=== PATIENT | female | born 1965 | race Caucasian/White ===

== ENCOUNTER 2017-04-19 10:27 | Emergency (ER) | payer OTHER ==
[2017-04-19 11:16] VITALS: BP 136/84; PULSE 80; TEMP 97.9; BMI 28.1
[2017-04-19] MEDS ORDERED: oxyCODONE HCL 5 MG TABLET PO ONE (11:31)
[2017-04-19] MEDS ORDERED: oxyCODONE HCL 5 MG TABLET ONE (11:38)
--- NOTE | 2017-04-19 11:42 | PDOC ---
History of Present Illness - General Chief Complaint: Pain Stated Complaint: WITHDAWAL Time Seen by Provider: 04/19/17 10:53 - History of Present Illness Initial Comments: 04/19/17 12:00 "52 year old female, with significant PMH of anxiety, ADHD, chronic shoulder pain (on percocet), and heroin use, who presents to the emergency room because she ran out of Xanax and adderall last week and ran out of percocet a couple of days ago. Pt now complains of sweats, nausea, bodyaches, and diarrhea. She states that she was previously on methadone, but does not remember when. The patient explains that she used to see Dr. Gaetano Thornton, who has recently left the office. She is in the process of finding a new PCP, but the earliest appointment is on 05/06/17 and states that she cannot wait that long. Denies fever, chills. Denies recent travel. Denies recent illness. Denies chest pain, SOB. Denies recent injuries, denies any pain. Allergies: NKA Social hx: The patient states that she is living in her car. Heroin use. PCP: Dr. Gaetano Thornton " Past History - Past Medical History Allergies/Adverse Reactions: Allergies Allergy/AdvReac Type Severity Reaction Status Date / Time No Known Allergies Allergy Verified 04/19/17 10:58 Home Medications: Ambulatory Orders Alprazolam [Xanax Xr] 1 mg PO TID 04/19/17 Dextroamphetamine/Amphetamine [Adderall Xr 30 mg Capsule] 30 mg PO TID 04/19/17 Oxycodone HCl [Roxicodone -] 10 mg PO Q6H 04/19/17 Anemia: No Asthma: No Cancer: No Cardiac Disorders: No CVA: No COPD: No CHF: No Dementia: No Diabetes: No GI Disorders: No Disorders: No HTN: No Hypercholesterolemia: No Liver Disease: No Psychiatric Problems: Yes Seizures: No Thyroid Disease: No - Surgical History Abdominal Surgery: No Appendectomy: No Cardiac Surgery: No Cholecystectomy: No Lung Surgery: No Neurologic Surgery: No Orthopedic Surgery: Yes (left shoulder arthroscopy) - Suicide/Smoking/Psychosocial Hx Smoking History: Current every day smoker Have you smoked in the past 12 months: Yes Number of Cigarettes Smoked Daily: 20 Information on smoking cessation initiated: Yes 'Breaking Loose' booklet given: 04/19/17 Hx Alcohol Use: No Drug/Substance Use Hx: No Substance Use Type: Heroin, Opiates Hx Substance Use Treatment: No Review of Systems - Review of Systems Comments:: 04/19/17 12:01 "GENERAL/CONSTITUTIONAL: No fever or chills. No weakness. HEAD, EYES, EARS, NOSE AND THROAT: No change in vision. No ear pain or discharge. No sore throat. CARDIOVASCULAR: No chest pain or shortness of breath. RESPIRATORY: No cough, wheezing, or hemoptysis. GASTROINTESTINAL: +nausea, diarrhea. No constipation. GENITOURINARY: No dysuria, frequency, or change in urination. MUSCULOSKELETAL: No joint or muscle swelling or pain. No neck or back pain. SKIN: No rash NEUROLOGIC: No headache, vertigo, loss of consciousness, or change in strength/ sensation. ENDOCRINE: No increased thirst. No abnormal weight change. HEMATOLOGIC/LYMPHATIC: No anemia, easy bleeding, or history of blood clots. ALLERGIC/IMMUNOLOGIC: No hives or skin allergy. " *Physical Exam - Vital Signs Last Vital Signs Temp Pulse Resp BP Pulse Ox 97.9 F 80 20 136/84 98 04/19/17 10:35 04/19/17 10:35 04/19/17 10:35 04/19/17 10:35 04/19/17 10:35 - Physical Exam Comments: 04/19/17 12:01 "GENERAL: Awake, alert, and fully oriented, in no acute distress HEAD: No signs of trauma EYES: PERRLA, EOMI, sclera anicteric, conjunctiva clear ENT: Auricles normal inspection, hearing grossly normal, nares patent, oropharynx clear without exudates. Moist mucosa NECK: Nontender, no stepoffs, Normal ROM, supple, no lymphadenopathy, JVD, or masses LUNGS: Breath sounds equal, clear to auscultation bilaterally. No wheezes, and no crackles HEART: Regular rate and rhythm, normal S1 and S2, no murmurs, rubs or gallops ABDOMEN: Soft, nontender, normoactive bowel sounds. No guarding, no rebound. No masses EXTREMITIES: Normal range of motion, no edema. No clubbing or cyanosis. No cords, erythema, or tenderness NEUROLOGICAL: Cranial nerves II through XII intact. 5/5 strength and sensation in all extremities, Normal speech, normal gait SKIN: Warm, Dry, normal turgor, no rashes or lesions noted. " Medical Decision Making - Medical Decision Making 04/19/17 11:35 52 F presenting with nausea, diarrhea, and body aches. Likely withdrawing from opiates. Pt with no s/s of active ETOH/benzo withdrawal. Vitals stable with completely normal physical exam. Offered pt [facility], but pt is not interested in detox at this time. I called Dr. Thornton's office, who informed me that Dr. Thornton has retired. His patients are no longer being seen in their practice, and there are no providers who can corn picker Ms. Pastor as their patient. I discussed with pt option of f/u with [facility], and pt is amenable. F/u appointment made for patient TOMORROW @ 1:30PM. 04/19/17 12:01 Pt ELOPED FROM ER immediately after receiving oxycodone. Per nurse, pt admitted to heroin use over the past few days. Although she witnessed pt putting the oxycodone in her mouth, it is uncertain whether pt actually swallowed the pill. Upon last evaluation, pt was well appearing, normal vitals. Clinically stable. *DC/Admit/Observation/Transfer Diagnosis at time of Disposition: Opiate abuse, continuous - Discharge Dispostion Disposition: ELOPED - Referrals Referrals: Gaetano Thornton MD [Primary Care Provider] - - Patient Instructions - Post Discharge Activity - Attestations Physician Attestion: 04/19/17 12:05 I, Dr. Juarez Trinidad MD, attest that this document has been prepared under my direction and personally reviewed by me in its entirety. I further attest, that it accurately reflects all work, treatment, procedures and medical decision -making performed by me.
[2017-04-19 12:23] LABS: URINE MARIJUANA THC NEGATIVE ng/ml (CUTOFF=50)
== END 2017-04-19 12:54 | disposition home or self-care (01) ==
LOC: JER 10:27
DX: F11.20 Opioid dependence, uncomplicated (principal); F41.9 Anxiety disorder, unspecified; F90.9 Attention-deficit hyperactivity disorder, unspecified type; F17.210 Nicotine dependence, cigarettes, uncomplicated
CPT/HCPCS: 80307; 99282-25

== ENCOUNTER 2017-07-27 18:15 | Emergency (ER) | payer OTHER ==
[2017-07-27 19:15] VITALS: BP 130/80; PULSE 84; TEMP 97.7; BMI 29.7
--- NOTE | 2017-07-27 19:31 | PDOC ---
History of Present Illness - General History Source: Patient Exam Limitations: No Limitations - History of Present Illness Initial Comments: 07/27/17 19:47 The patient is a 52 year old female, with a significant PMH of anxiety, ADHD, chronic shoulder pain (on percocet), and heroin use who presents to the emergency department with right ear pain for the last 3 days. The patient reports ear discharge today with associated, moderate facial pain prompting her to come to the ER. The patient denies fever or any URI symptoms. The patient denies chest pain, shortness of breath, headache and dizziness. Denies fever, chills, nausea, vomit, diarrhea and constipation. Denies dysuria, frequency, urgency and hematuria. Allergies: NKA Past surgical history: Left shoulder arthroscopy Social history: Heroin and opiate use. No reported cigarette or alcohol use. <Dede Bartholomew - Last Filed: 07/27/17 19:52> <Ramiro Carrillo - Last Filed: 07/28/17 06:37> - General Chief Complaint: Ear Problem Stated Complaint: RIGHT EAR PAIN Time Seen by Provider: 07/27/17 19:31 Past History <Dede Bartholomew - Last Filed: 07/27/17 19:52> - Past Medical History Anemia: No Asthma: No Cancer: No Cardiac Disorders: No CVA: No COPD: No CHF: No Dementia: No Diabetes: No GI Disorders: No Disorders: No HTN: No Hypercholesterolemia: No Liver Disease: No Psychiatric Problems: Yes Seizures: No Thyroid Disease: No - Surgical History Abdominal Surgery: No Appendectomy: No Cardiac Surgery: No Cholecystectomy: No Lung Surgery: No Neurologic Surgery: No Orthopedic Surgery: Yes (left shoulder arthroscopy) - Suicide/Smoking/Psychosocial Hx Smoking History: Never smoked Have you smoked in the past 12 months: Yes Number of Cigarettes Smoked Daily: 20 'Breaking Loose' booklet given: 04/19/17 Hx Alcohol Use: No Drug/Substance Use Hx: No Substance Use Type: Heroin, Opiates Hx Substance Use Treatment: No <Ramiro Carrillo - Last Filed: 07/28/17 06:37> - Past Medical History Allergies/Adverse Reactions: Allergies Allergy/AdvReac Type Severity Reaction Status Date / Time No Known Allergies Allergy Verified 07/27/17 18:27 Home Medications: Ambulatory Orders Alprazolam [Xanax Xr] 1 mg PO TID 04/19/17 Dextroamphetamine/Amphetamine [Adderall Xr 30 mg Capsule] 30 mg PO TID 04/19/17 oxyCODONE HCL [Roxicodone -] 10 mg PO Q6H 04/19/17 Amoxicillin - [Amoxicillin 500mg Capsule -] 500 mg PO TID #21 capsule 07/27/17 Naproxen 500 mg PO BID PRN #14 tablet 07/27/17 Review of Systems - Review of Systems Able to Perform ROS?: Yes Comments:: 07/27/17 19:48 ROS: A complete review of 10 out of 10 review of systems is taken and is negative apart from what is previously mentioned below and in the HPI. <Dede Bartholomew - Last Filed: 07/27/17 19:52> *Physical Exam - Vital Signs Last Vital Signs Temp Pulse Resp BP Pulse Ox 97.7 F 84 16 130/80 98 07/27/17 19:13 07/27/17 19:13 07/27/17 19:13 07/27/17 19:13 07/27/17 19:13 - Physical Exam Comments: 07/27/17 19:48 Vitals: Triage vital signs reviewed General Appearance: No acute distress, well nourished, well developed Eyes: Pupils equal reactive round, extraocular movement intact Ears: (+) Otitis externa. (+) Cannot visualize TM. (+) Mild tenderness to palpation when manipulating pinna. Mastoid NT. TM's normal bilaterally Cardiac: Regular rate and rhythm, no murmurs, no rubs, no gallops Lungs: Clear to auscultation bilateral, good air movement bilaterally Extremities: Full range of motion to all extremities, no cyanosis, clubbing, or edema Skin: Warm and dry, no rashes or lesions, no rash, no petechiae Neuro: AOX3; Cranial Nerves 2-12 grossly intact, Strength intact to all extremities, Sensation intact to all extremities, gait normal Psych: Normal mood, normal affect <Dede Bartholomew - Last Filed: 07/27/17 19:52> - Vital Signs Last Vital Signs Temp Pulse Resp BP Pulse Ox 97.7 F 84 16 130/80 98 07/27/17 19:13 07/27/17 19:13 07/27/17 19:13 07/27/17 19:13 07/27/17 19:13 <Ramiro Carrillo - Last Filed: 07/28/17 06:37> Medical Decision Making - Medical Decision Making 07/28/17 06:36 otitis externa cannot r/o OM wick placed, topical abx, systemic abx, analgesia ENT fu <Ramiro Carrillo - Last Filed: 07/28/17 06:37> *DC/Admit/Observation/Transfer - Attestations Scribe Attestion: 07/27/17 19:51 Documentation prepared by Dede Bartholomew, acting as director biomedical engineering for Ramiro Carrillo MD. <Dede Bartholomew - Last Filed: 07/27/17 19:52> <Ramiro Carrillo - Last Filed: 07/28/17 06:37> Diagnosis at time of Disposition: Otitis externa Qualifiers: Otitis externa type: diffuse Chronicity: acute Laterality: right Qualified Code (s): H60.311 - Diffuse otitis externa, right ear - Discharge Dispostion Disposition: HOME Condition at time of disposition: Good - Prescriptions Prescriptions: Amoxicillin - [Amoxicillin 500mg Capsule -] 500 mg PO TID #21 capsule Naproxen 500 mg PO BID PRN #14 tablet PRN Reason: Pain - Referrals Referrals: Jesús Christine MD [Staff Physician] - 3 days - Patient Instructions Printed Discharge Instructions: DI for Otitis Externa
[2017-07-27] MEDS ORDERED: AMOXICILLIN 500 MG CAPSULE (FP) PO ONE (19:32)
[2017-07-27] MEDS ORDERED: KETOROLAC TROMETHAMINE 60 MG/2 ML VIAL IM ONE (19:33)
[2017-07-27] MEDS ORDERED: NEOMYCIN/POLYMYXN/HC OTIC SUSPENSION 10 ML BOTTLE ONE (19:39)
[2017-07-27] MEDS ORDERED: KETOROLAC TROMETHAMINE 60 MG/2 ML VIAL ONE (19:41)
[2017-07-27] MEDS ORDERED: AMOXICILLIN 250 MG CAPSULE ONE (19:42)
== END 2017-07-27 20:52 | disposition home or self-care (01) ==
LOC: FER 18:15
PROC: 3E0233Z Introduction of Anti-inflammatory into Muscle, Percutaneous Approach (ICD-10-PCS; principal; 2017-07-27)
DX: H60.311 Diffuse otitis externa, right ear (principal)
CPT/HCPCS: 99281-25

== ENCOUNTER 2018-05-26 07:15 | Emergency (ER) | payer OTHER ==
[2018-05-26 07:23] VITALS: BP 110/59; TEMP 98.3; BMI 28.1
[2018-05-26] MEDS ORDERED: ALBUTEROL SO4 2.5/IPRATROPIUM 0.5 INH SOL 3 ML VIAL.NEB. NEB ONE ×4 (07:31→08:15)
--- NOTE | 2018-05-26 07:33 | PDOC ---
History of Present Illness - General Chief Complaint: Shortness of Breath Stated Complaint: SOB Time Seen by Provider: 05/26/18 07:20 History Source: Patient Exam Limitations: No Limitations - History of Present Illness Initial Comments: 05/26/18 07:34 53y F hx of asthma, former heroin abuse presnts with sob x 3 days associated with non productive cough. no associated fever/chills, hemoptysis, leg swelling , calf pain, cp, abd pain, n/v, diaphoresis, back pain. pt endorses some young. pt notse she occasionally uses her albuterol but ran out recently. son is sick with uri symptmos. pt endorses alittle tickle in her throat but denies any nasal congestion, body aches. current smoker Past History - Past Medical History Allergies/Adverse Reactions: Allergies Allergy/AdvReac Type Severity Reaction Status Date / Time No Known Allergies Allergy Verified 05/26/18 07:15 Home Medications: Ambulatory Orders Alprazolam [Xanax Xr] 1 mg PO TID 04/19/17 Dextroamphetamine/Amphetamine [Adderall Xr 30 mg Capsule] 30 mg PO TID 04/19/17 oxyCODONE HCL [Roxicodone -] 10 mg PO Q6H 04/19/17 Albuterol Sulfate Inhaler - [Ventolin HFA Inhaler -] 1 - 2 inh PO Q4H PRN #1 inhaler 05/26/18 Albuterol Sulfate Inhaler - [Ventolin Hfa Inhaler -] 1 - 2 inh PO QID 05/26/18 predniSONE [Deltasone -] 40 mg PO DAILY #8 tablet 05/26/18 Anemia: No Asthma: No Cancer: No Cardiac Disorders: No CVA: No COPD: No CHF: No Dementia: No Diabetes: No GI Disorders: No Disorders: No HTN: No Hypercholesterolemia: No Liver Disease: No Psychiatric Problems: Yes Seizures: No Thyroid Disease: No Other medical history: ASTHMA - Surgical History Abdominal Surgery: No Appendectomy: No Cardiac Surgery: No Cholecystectomy: No Lung Surgery: No Neurologic Surgery: No Orthopedic Surgery: Yes (left shoulder arthroscopy) - Suicide/Smoking/Psychosocial Hx Smoking History: Current every day smoker Have you smoked in the past 12 months: Yes Number of Cigarettes Smoked Daily: 5 Information on smoking cessation initiated: Yes 'Breaking Loose' booklet given: 04/19/17 Hx Alcohol Use: No Drug/Substance Use Hx: No Substance Use Type: Heroin, Opiates Hx Substance Use Treatment: No Review of Systems - Review of Systems Able to Perform ROS?: Yes Comments:: 05/26/18 07:35 Constitutional - no reported Fever, Chills, HEENT: no reported vision changes, sore throat Respiratory: +cough, sob, no reported hemoptysis Cardiac: no reported chest pain, palpitations, light headedness, leg swelling Abd/GI: no reported abd pain, nausea, vomiting, blood per rectum, melena, diarrhea : no reported dysuria, frequency, discharge Musculskelatal - no reported back pain, joint swelling skin - no reported bruising, erythema, rash neurological: no reported headache, numbness, focal weakness, tingling, ataxia, hematologic: no reported easy bruising, easy bleeding *Physical Exam - Vital Signs Last Vital Signs Temp Pulse Resp BP Pulse Ox 98.3 F 102 H 20 110/59 L 92 L 05/26/18 07:15 05/26/18 07:15 05/26/18 07:15 05/26/18 07:15 05/26/18 07:15 - Physical Exam Comments: 05/26/18 07:39 GENERAL: The patient is awake, alert, and fully oriented, Nontoxic - in no acute distress. HEAD: Normocephalic, atraumatic. EYES: extraocular movements intact, sclera anicteric, conjunctiva clear. ENT: Normal voice, Moist mucous membranes, posterior pharynx w.o exudates or erythema NECK: Normal range of motion, supple LUNGS: diffuse wheezing bilatearlly, mild respiratory distress, speaking complete sentences HEART: Regular rate and rhythm, normal S1 and S2 without murmur, rub or gallop. ABDOMEN: Soft, nontender, No guarding, no rebound. . No CVA tenderness EXTREMITIES: Normal range of motion, trace edema. NEUROLOGICAL: No facial assymetry, Normal speech, PSYCH: Normal mood, normal affect. SKIN: Warm, Dry, normal turgor, Moderate Sedation - Procedure Monitoring Vital Signs: Procedure Monitoring Vital Signs Temperature 98.3 F 05/26/18 07:15 Pulse Rate 102 H 05/26/18 07:15 Respiratory Rate 20 05/26/18 07:15 Blood Pressure 110/59 L 05/26/18 07:15 O2 Sat by Pulse Oximetry (%) 92 L 05/26/18 07:15 ED Treatment Course - RADIOLOGY Radiology Studies Ordered: Category Date Time Status CHEST PA & LAT [RAD] Stat Radiology 05/26/18 07:31 Ordered Medical Decision Making - Medical Decision Making 05/26/18 07:40 suspect asthma exacerbation secondary to viral syndrome will give 1 neb, if requires more will give prednisone cxr to r/o pna 05/26/18 08:51 pt improved after 2 duonebs no acut respiratory distress sat normal will dc with albuterol inhaler and prednisone cxr w no acute pathology I discussed the physical exam findings, ancillary test results and final diagnoses with the patient. I answered all of the patient's questions. The patient was satisfied with the care received and felt comfortable with the discharge plan and treatment plan. The patient will call their primary care physician within 24 hours to arrange follow-up and will return to the Emergency Department with any new, persistent or worsening symptoms. *DC/Admit/Observation/Transfer Diagnosis at time of Disposition: Asthma exacerbation Qualifiers: Asthma severity: moderate Asthma persistence: unspecified Qualified Code(s): J45.901 - Unspecified asthma with (acute) exacerbation - Discharge Dispostion Disposition: HOME Condition at time of disposition: Improved Decision to Admit order: No - Prescriptions Prescriptions: Albuterol Sulfate Inhaler - [Ventolin HFA Inhaler -] 1 - 2 inh PO Q4H PRN #1 inhaler PRN Reason: Shortness Of Breath predniSONE [Deltasone -] 40 mg PO DAILY #8 tablet - Referrals Referrals: Oscar German MD [Staff Physician] - - Patient Instructions Printed Discharge Instructions: DI for Asthma -- Adult Additional Instructions: Return to the emergency department immediately with ANY new, persistent or worsening symptoms fluid including chest pain, worsening shortness of breath, fevers or any other concerns. Take the steroids as prescribed, use your inhaler up to every 4 hours as needed. If you need a more often than every 4 hours he should return to the ER for further You MUST call and follow up with your doctor in 3-4 days for further evaluation of your symptoms. Results were discussed with you. Please make sure your doctor reviews the results of your emergency evaluation. Print Language: GREEK - Post Discharge Activity
[2018-05-26 07:47] VITALS: PULSE 101
[2018-05-26] MEDS ORDERED: predniSONE 20 MG TABLET (UD) PO ONE (07:53)
[2018-05-26] MEDS ORDERED: predniSONE 20 MG TABLET (UD) ONE (08:15)
== END 2018-05-26 09:05 | disposition home or self-care (01) ==
LOC: FER 07:15
PROC: 3E0F7GC Introduction of Other Therapeutic Substance into Respiratory Tract, Via Natural or Artificial Opening (ICD-10-PCS; principal; 2018-05-26)
DX: J45.901 Unspecified asthma with (acute) exacerbation (principal); F17.210 Nicotine dependence, cigarettes, uncomplicated
CPT/HCPCS: 71046-TC-FY; 99281-25

== ENCOUNTER 2019-04-09 14:57 | Emergency (ER) | payer OTHER ==
[2019-04-09] MEDS ORDERED: ALBUTEROL SO4 2.5/IPRATROPIUM 0.5 INH SOL 3 ML VIAL.NEB. NEB ONE ×2 (15:01→15:02)
[2019-04-09] MEDS ORDERED: methylPREDNISolone NA SUCC 125 MG/2 ML VIAL IVPUSH ONE (15:01)
--- NOTE | 2019-04-09 15:05 | PDOC ---
History of Present Illness - General Chief Complaint: Cold Symptoms Stated Complaint: sob, prod cough Time Seen by Provider: 04/09/19 15:00 - History of Present Illness Initial Comments: Ms. Pastor is a 54 y/o female with PMH significant for asthma and possible COPD, presenting today with shortness of breath that started on Monday. Reports that she has been feeling ill for the past couple of days with cough and runny nose. No fever. Reports that the SOB has not worsened or improved. She ran out of her inhaler but has her nebulizer at home. Denies chest pain. Denies abd pain /leg swelling. Denies nausea/vomiting. Past History - Past Medical History Allergies/Adverse Reactions: Allergies Allergy/AdvReac Type Severity Reaction Status Date / Time No Known Allergies Allergy Verified 04/09/19 14:58 Home Medications: Ambulatory Orders Alprazolam [Xanax Xr] 2 mg PO TID 04/19/17 oxyCODONE HCL [Roxicodone -] 10 mg PO TID 04/19/17 Albuterol Sulfate Inhaler - [Ventolin Hfa Inhaler -] 2 inh PO Q4H PRN 08/03/18 Dextroamphetamine/Amphetamine [Adderall Xr 15 mg Capsule] 15 mg PO BID 08/03/18 Prednisone [Prednisone 50 MG TABLETS] 50 mg PO DAILY 5 Days #5 tablet 04/09/19 Anemia: No Asthma: No Cancer: No Cardiac Disorders: No CVA: No COPD: No CHF: No Dementia: No Diabetes: No GI Disorders: No Disorders: No HTN: No Hypercholesterolemia: No Liver Disease: No Psychiatric Problems: Yes Seizures: No Thyroid Disease: No - Surgical History Abdominal Surgery: No Appendectomy: No Cardiac Surgery: No Cholecystectomy: No Lung Surgery: No Neurologic Surgery: No Orthopedic Surgery: Yes (left shoulder arthroscopy) - Psycho Social/Smoking Cessation Hx Smoking History: Current every day smoker Have you smoked in the past 12 months: Yes Number of Cigarettes Smoked Daily: 5 'Breaking Loose' booklet given: 08/03/18 Hx Alcohol Use: No Drug/Substance Use Hx: No Substance Use Type: Heroin, Opiates Hx Substance Use Treatment: No Review of Systems - Review of Systems Comments:: GENERAL/CONSTITUTIONAL: No fever or chills. No weakness._ HEAD, EYES, EARS, NOSE AND THROAT: No change in vision. No change in hearing. No sore throat. Reports runny nose. CARDIOVASCULAR: No chest pain. Reports shortness of breath. RESPIRATORY: Reports cough. No hemoptysis_ GASTROINTESTINAL: No nausea, vomiting, diarrhea or constipation._ GENITOURINARY: No dysuria, frequency, or change in urination._ MUSCULOSKELETAL: No joint or muscle swelling or pain. No neck or back pain._ SKIN: No rash_ NEUROLOGIC: No headache, vertigo, loss of consciousness, or change in strength/ sensation._ HEMATOLOGIC/LYMPHATIC: No anemia, easy bleeding, or history of blood clots._ ALLERGIC/IMMUNOLOGIC: No hives or skin allergy._ *Physical Exam - Physical Exam Comments: GENERAL: Awake, alert, and oriented to person/place/time, in no acute distress_ HEAD: No signs of trauma, normocephalic, atraumatic _ EYES: PERRLA, EOMI, sclera anicteric, conjunctiva clear_ ENT: Hearing grossly normal, nares patent, oropharynx clear without exudates. No uvular deviation. Moist mucosa_ NECK: Normal ROM, supple, no lymphadenopathy, JVD, or masses_ LUNGS: No distress, speaks in full sentences, diffuse wheezes in bilateral upper and lower lung salgado HEART: Regular rate and rhythm, normal S1 and S2, no murmurs appreciated, peripheral pulses normal and equal bilaterally._ ABDOMEN: Soft, nontender, normoactive bowel sounds. No guarding, no rebound. No masses_ EXTREMITIES: Normal inspection, Normal range of motion, no edema. No clubbing or cyanosis_ NEUROLOGICAL: Cranial nerves II through XII grossly intact. Normal speech, normal gait, no focal sensorimotor deficits _ SKIN: Warm, Dry, normal turgor, no rashes or lesions noted_ ED Treatment Course - LABORATORY CBC & Chemistry Diagram: 04/09/19 15:12 04/09/19 15:12 - RADIOLOGY Radiology Studies Ordered: Category Date Time Status CHEST PA & LAT [RAD] Stat Radiology 04/09/19 15:02 Ordered Medical Decision Making - Medical Decision Making 54F hx of asthma presenting with shortness of breath for 5 days. Sats well on room air. -cbc, cmp, trop, bnp -ekg, cxr -duonebs x3, solumedrol 04/09/19 16:09 EKG shows NSR, no ST elevation/depression, no axis deviation, QTc 463. 04/09/19 16:37 Pt reassessed. Reports significant resolution of symptoms. Wheezing diminished bilaterally. 04/09/19 16:55 Labs reviewed and wnl. Plan to d/c home, prednisone x5 days, f/u PCP. Laboratory Tests 04/09/19 04/09/19 04/09/19 15:12 15:12 15:12 WBC 7.8 RBC 5.12 Hgb 14.9 Hct 44.9 MCV 87.8 MCH 29.1 MCHC 33.1 RDW 11.6 Plt Count 290 MPV 8.9 Absolute Neuts (auto) 4.4 Neutrophils % 57.8 Lymphocytes % 26.8 Monocytes % 3.2 L Eosinophils % 11.5 H Basophils % 0.7 Sodium 138 Potassium 4.5 Chloride 106 Carbon Dioxide 27 Anion Gap 5 L BUN 16.0 Creatinine 0.9 Est GFR (CKD-EPI)AfAm 84.01 Est GFR (CKD-EPI)NonAf 72.49 Random Glucose 96 Calcium 9.0 Total Bilirubin 0.7 AST 26 ALT 28 Alkaline Phosphatase 63 Creatine Kinase 90 Troponin I < 0.03 Total Protein 7.0 Albumin 4.1 Discharge - Discharge Information Problems reviewed: Yes Clinical Impression/Diagnosis: Asthma exacerbation Qualifiers: Asthma severity: unspecified severity Asthma persistence: unspecified Qualified Code(s): J45.901 - Unspecified asthma with (acute) exacerbation Condition: Stable Disposition: HOME - Admission No - Additional Discharge Information Prescriptions: Prednisone [Prednisone 50 MG TABLETS] 50 mg PO DAILY 5 Days #5 tablet - Follow up/Referral - Patient Discharge Instructions Patient Printed Discharge Instructions: Smoking Cessation for Older Adults: It' s Not Too Late!, DI for Asthma -- Adult Additional Instructions: Please take Prednisone 50 mg daily for 5 days. Please see your primary care doctor for medication refill. If you experience any new, worsening, or concerning symptoms, including severe chest pain or shortness of breath, please return to the emergency department. - Post Discharge Activity Work/Back to School Note: Back to Work
[2019-04-09 15:08] VITALS: TEMP 98.4; BMI 31.3
[2019-04-09] MEDS ORDERED: methylPREDNISolone NA SUCC 125 MG/2 ML VIAL ONE (15:08)
--- NOTE | 2019-04-09 15:16 | PDOC ---
Attending Attestation - Resident Resident Name: Westley Cruz - ED Attending Attestation I have performed the following: I have examined & evaluated the patient, The case was reviewed & discussed with the resident, I agree w/resident's findings & plan - HPI HPI: 04/09/19 15:13 54-year-old female with history of asthma/COPD, active smoker, history of opiate use presents with 1 to 2 weeks of cough slightly improved after course of Z-Tristen, now with 1 to 2 days of increased chest congestion and wheezing with dry cough similar to past asthma/COPD exacerbations. Patient was not placed on prednisone, last course was about 1 year ago. Active smoker, but has not smoked in the last 1 to 2 days. Denies any fevers or chills or chest pain, no leg swelling, no travel or known sick contacts. - Physicial Exam PE: 04/09/19 15:14 Vitals as noted, afebrile, O2 sat 97% on room air, slight tachycardia Seated comfortably on stretcher with nebulizers in place, speaking 6-7 word sentences, slightly tachypneic No JVD, oropharynx clear, no stridor Heart is regular slight tachycardia without murmur Lungs with diffuse inspiratory and expiratory wheezing with slightly decreased expiration, no focally decreased breath sounds, no wheezing Abdomen benign no edema - Critical Care Time Total Critical Care Time: 30 Critical Care Statement: The care of this patient involved high complexity decision making to prevent further life threatening deterioration of the patient 's condition and/or to evaluate & treat vital organ system(s) failure or risk of failure. - Medical Decision Making 04/09/19 15:15 54-year-old female with history of asthma/COPD presents with COPD exacerbation in the setting of recent upper respiratory infection, likely viral in etiology. Here with tachypnea not hypoxic or septic. Check labs, EKG Chest x-ray, nebulizers, steroids Reassess 04/09/19 16:55 significant improvement after nebs, received steroids. CXR clear, EKG normal, labs wnl including trop. pt lying flat texting on her cell phone, o2 sat 100% on room air, ambulating without SOB/hypoxia. 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 Heart Score/ECG Review #1 ECG reviewed & interpreted by me at: 16:04 General ECG Interpretation: Sinus Rhythm, Normal Rate (76), Normal Intervals ( qtc 463), No acute ischemic changes
[2019-04-09 16:15] VITALS: BP 118/79; PULSE 84
[2019-04-09 16:30] LABS: BASO % 0.7 % (0-2.0); EOS % 11.5 % (0-4.5); HEMATOCRIT 44.9 % (32.4-45.2); HEMOGLOBIN 14.9 GM/dl (10.7-15.3); LYMPH % 26.8 % (8-40); MCH 29.1 pg (25.7-33.7); MCHC 33.1 g/dl (32.0-36.0); MEAN CELL VOLUME 87.8 fl (80-96); MEAN PLT VOLUME 8.9 fl (7.5-11.1); MONO % 3.2 % (3.8-10.2); NEUT % 57.8 % (42.8-82.8); PLATELET COUNT 290 K/MM3 (134-434); RBC 5.12 M/mm3 (3.60-5.2); RDW 11.6 % (11.6-15.6); WHITE BLOOD COUNT 7.8 K/mm3 (4.0-10.8)
[2019-04-09 16:38] LABS: ALBUMIN 4.1 g/dl (3.4-5.0); BILIRUBIN,TOTAL 0.7 mg/dl (0.2-1); CREATININE 0.9 mg/dl (0.55-1.3); POTASSIUM 4.5 mmol/L (3.5-5.1)
--- NOTE | 2019-04-10 10:18 | EKG ---
Test Reason : Blood Pressure : / mmHG Vent. Rate : 076 BPM Atrial Rate : 076 BPM P-R Int : 148 ms QRS Dur : 082 ms QT Int : 412 ms P-R-T Axes : 059 002 047 degrees QTc Int : 463 ms NORMAL SINUS RHYTHM POSSIBLE LEFT ATRIAL ENLARGEMENT CANNOT RULE OUT INFERIOR INFARCT , AGE UNDETERMINED ABNORMAL ECG WHEN COMPARED WITH ECG OF 19-JAN-2018 16:19, NO SIGNIFICANT CHANGE WAS FOUND Confirmed by TIGRE MULLINS, OJSSY ([id number]) on 04/10/2019 10:18:07 AM Referred By: DR CANO Confirmed By:JOSSY LANDEROS MD
== END 2019-04-09 17:11 | disposition home or self-care (01) ==
LOC: FER 14:57
PROC: 3E0F7GC Introduction of Other Therapeutic Substance into Respiratory Tract, Via Natural or Artificial Opening (ICD-10-PCS; principal; 2019-04-09)
PROC: 3E033GC Introduction of Other Therapeutic Substance into Peripheral Vein, Percutaneous Approach (ICD-10-PCS; 2019-04-09)
DX: J45.901 Unspecified asthma with (acute) exacerbation (principal); F17.210 Nicotine dependence, cigarettes, uncomplicated; F99 Mental disorder, not otherwise specified
CPT/HCPCS: 36415; 71046-TC-FY; 80053; 82550; 83880; 84484; 85025; 93005; 94640; 96374; 99283-25

== ENCOUNTER 2020-09-03 18:55 | Emergency (ER) | payer OTHER ==
[2020-09-03] MEDS ORDERED: predniSONE 20 MG TABLET (UD) ONE (19:33)
[2020-09-03] MEDS ORDERED: predniSONE 20 MG TABLET (UD) PO ONE (19:35)
[2020-09-03] MEDS ORDERED: ACETAMINOPHEN 500 MG TABLET (FP) PO ONE (19:39)
[2020-09-03] MEDS ORDERED: ACETAMINOPHEN 500 MG TABLET (FP) ONE (19:41)
[2020-09-03 19:56] VITALS: BP 123/80; PULSE 90; TEMP 98; BMI 31.3
== END 2020-09-03 19:54 | disposition home or self-care (01) ==
LOC: FER 18:55
DX: Z91.030 Bee allergy status (principal)
CPT/HCPCS: 99284-25

== ENCOUNTER 2022-01-27 12:12 | Emergency (ER) | payer OTHER ==
[2022-01-27 12:40] VITALS: BP 143/91; PULSE 70; RESP 20; TEMP 98.4; BMI 31.3
[2022-01-27] MEDS ORDERED: CEPHALEXIN MONOHYDRATE 500 MG CAPSULE (UD) PO ONE (13:31)
[2022-01-27] MEDS ORDERED: ACETAMINOPHEN 325 MG TABLET (FP) PO ONE (13:31)
[2022-01-27] MEDS ORDERED: CEPHALEXIN MONOHYDRATE 500 MG CAPSULE (UD) ONE (13:35)
[2022-01-27] MEDS ORDERED: ACETAMINOPHEN 325 MG TABLET (FP) ONE (13:35)
== END 2022-01-27 13:51 | disposition home or self-care (01) ==
LOC: FER 12:12
PROC: 0H96XZZ Drainage of Back Skin, External Approach (ICD-10-PCS; principal; 2022-01-27)
DX: L02.212 Cutaneous abscess of back [any part, except buttock and flank] (principal)
CPT/HCPCS: 99283-25

== ENCOUNTER 2022-01-29 18:25 | Emergency (ER) | payer OTHER ==
[2022-01-29 18:46] VITALS: BP 154/98; PULSE 98; RESP 18; TEMP 98.1; BMI 31.3
[2022-01-29] MEDS ORDERED: ALBUTEROL SO4 2.5/IPRATROPIUM 0.5 INH SOL 3 ML VIAL.NEB. NEB ONE (18:57)
[2022-01-29] MEDS: ALBUTEROL SO4 2.5/IPRATROPIUM 0.5 INH SOL 3 ML VIAL.NEB. NEB SCH ×3 (19:00→19:20)
[2022-01-29] MEDS ORDERED: DEXAMETHASONE LIQUID 0.5 MG/5 ML PO ONE (19:27)
[2022-01-29] MEDS ORDERED: DEXAMETHASONE SOD PHOSPHATE 10 MG/1 ML VIAL ONE (19:28)
== END 2022-01-29 19:35 | disposition home or self-care (01) ==
LOC: FER 18:25
PROC: 3E0F7GC Introduction of Other Therapeutic Substance into Respiratory Tract, Via Natural or Artificial Opening (ICD-10-PCS; principal; 2022-01-29)
DX: J45.901 Unspecified asthma with (acute) exacerbation (principal); Z48.00 Encounter for change or removal of nonsurgical wound dressing
CPT/HCPCS: 99283-25

== ENCOUNTER 2022-10-27 13:55 | Emergency (ER) | payer OTHER ==
[2022-10-27 14:19] VITALS: BP 131/90; PULSE 94; RESP 20; TEMP 98.3; BMI 35.2
== END 2022-10-27 15:16 | disposition home or self-care (01) ==
LOC: FER 13:55
DX: S93.402A Sprain of unspecified ligament of left ankle, initial encounter (principal); S91.032A Puncture wound without foreign body, left ankle, initial encounter; W23.1XXA Caught, crushed, jammed, or pinched between stationary objects, initial encounter; Y93.9 Activity, unspecified; Y92.009 Unspecified place in unspecified non-institutional (private) residence as the place of occurrence of the external cause
CPT/HCPCS: 73610-TC-LT-FY; 99283-25

== ENCOUNTER → 2022-12-15 | Day surgery (SDC) | payer OTHER | END | disposition home or self-care (01) | LOC: FRADUS-SUR 08:49 | PROVIDERS: ATTEND Internal Medicine | PROC: 0HBU3ZX Excision of Left Breast, Percutaneous Approach, Diagnostic (ICD-10-PCS; principal; 2022-12-15) | DX: C50.212 Malignant neoplasm of upper-inner quadrant of left female breast (principal); Z17.0 Estrogen receptor positive status [ER+] | CPT/HCPCS: 19083; 77065-TC; 87899; 88305-TC; 88341-TC; 88342-TC; A4648 ==

== ENCOUNTER → 2023-02-22 | Day surgery (SDC) | payer OTHER | END | disposition home or self-care (01) | LOC: JRADUS-SUR 09:19 | PROVIDERS: ATTEND Surgery Surgical Oncology | PROC: BH01ZZZ Plain Radiography of Left Breast (ICD-10-PCS; principal; 2023-02-22) | DX: C50.912 Malignant neoplasm of unspecified site of left female breast (principal) | CPT/HCPCS: 19281; A4648 ==

== ENCOUNTER 2023-03-01 04:42 | Day surgery (SDC) | payer OTHER ==
[2023-02-28 16:20] VITALS: BMI 32.8
[2023-03-01 10:26] VITALS: BP 105/79; PULSE 76; RESP 20; TEMP 98.6
== END 2023-03-01 12:30 | disposition home or self-care (01) ==
LOC: JASU-SURG 04:42
PROVIDERS: ATTEND Surgery Surgical Oncology
DX: Z53.9 Procedure and treatment not carried out, unspecified reason (principal)
CPT/HCPCS: 93005; 93010

== ENCOUNTER 2023-03-29 03:44 | Day surgery (SDC) | payer OTHER ==
[2023-03-28 17:42] VITALS: BMI 31.3
[~2023-03-29 03:44] MED LIST: BUPIVACAINE HCL/PF 0.25% (2.5MG/ML) 10 ML VIAL IJ ONE
[2023-03-29] MEDS ORDERED: FENTANYL CITRATE/PF 50 MCG/ML VIAL ONE ×3 (13:00→17:55)
[2023-03-29] MEDS ORDERED: MIDAZOLAM HCL 2 MG/2 ML SINGLE DOSE VIAL ONE (13:00)
[2023-03-29] MEDS ORDERED: ONDANSETRON 4 MG/2 ML VIAL IVPUSH PRN ×3 (13:10→17:48)
[2023-03-29] MEDS ORDERED: HYDROmorphone HCl 2 MG/ML VIAL ONE (13:52)
[2023-03-29] MEDS ORDERED: ceFAZolin SODIUM 1 GM VIAL IVPB ONE (14:00)
[2023-03-29] MEDS ORDERED: ROCURONIUM BROMIDE 50 MG/5 ML SYRINGE ONE (14:01)
[2023-03-29] MEDS ORDERED: ceFAZolin SODIUM 1 GM VIAL ONE (14:01)
[2023-03-29] MEDS ORDERED: DEXAMETHASONE SOD PHOSPHATE 4 MG/1 ML VIAL ONE (14:01)
[2023-03-29] MEDS ORDERED: LIDOCAINE HCL/PF 2% SDV 5ML VIAL ONE (14:01)
[2023-03-29] MEDS ORDERED: ONDANSETRON 4 MG/2 ML VIAL ONE (14:01)
[2023-03-29] MEDS ORDERED: PROPOFOL 20 ML ONE ×3 (14:18→17:20)
[2023-03-29] MEDS ORDERED: NEOSTIGMINE METHYLSULFATE 0.5 MG/1 ML - 10 ML MDV ONE (16:39)
[2023-03-29] MEDS ORDERED: ACETAMINOPHEN 1000 MG/100 ML BAG IVPB SCH ×2 (17:00→18:00)
[2023-03-29] MEDS ORDERED: ACETAMINOPHEN INJECTION 100 ML IVPB ONE (17:21)
[2023-03-29] MEDS ORDERED: BUPIVACAINE HCL/PF 0.25% (2.5MG/ML) 10 ML VIAL IJ ONE (17:27)
[2023-03-29] MEDS: DEXTROSE 5%-0.45% SALINE 1,000 ML IV SCH (18:00)
[2023-03-29] MEDS ORDERED: morphine SULFATE 4 MG/ML VIAL IVPUSH PRN (20:04)
[2023-03-29] MEDS ORDERED: oxyCODONE HCL 5 MG TABLET PO PRN (20:05)
[2023-03-29] MEDS: CEFAZOLIN 1 GM in DEXTROSE 5%-WATER - 50 ML IVPB SCH (23:18)
[2023-03-30] MEDS: ACETAMINOPHEN 1000 MG/100 ML BAG IVPB SCH ×3 (01:39→12:33)
[2023-03-30] MEDS: CEFAZOLIN 1 GM in DEXTROSE 5%-WATER - 50 ML IVPB SCH ×2 (05:52→10:43)
[2023-03-30] MEDS: DEXTROSE 5%-0.45% SALINE 1,000 ML IV SCH (09:11)
[2023-03-30 09:41] LABS: POTASSIUM 4.2 mmol/L (3.5-5.1)
[2023-03-30 09:46] LABS: CALCIUM 7.8 mg/dL (8.5-10.1)
[2023-03-30 09:47] LABS: BLOOD UREA NITROGEN 10.6 mg/dL (7-18)
[2023-03-30 09:50] LABS: CREATININE 0.8 mg/dL (0.55-1.3)
[2023-03-30 10:10] LABS: HEMOGLOBIN 10.3 GM/dL (10.7-15.3); MCH 23.6 pg (25.7-33.7); MCHC 31.3 g/dl (32.0-36.0); MEAN CELL VOLUME 75.6 fl (80-96); PLATELET COUNT 273 10^3/uL (134-434); RBC 4.36 M/mm3 (3.60-5.2); RDW 17.2 % (11.6-15.6); WHITE BLOOD COUNT 11.4 K/mm3 (4.0-10.0)
[2023-03-30 10:25] VITALS: BP 91/55; PULSE 83; RESP 16; TEMP 98.9
== END 2023-03-30 13:09 | disposition home or self-care (01) ==
LOC: JASU-SURG 03:44 → JASUSAT 03:44 → J6S 21:00 → JASUSAT 03-30 13:09
PROVIDERS: ATTEND Surgery Surgical Oncology
PROC: 0HBU0ZZ Excision of Left Breast, Open Approach (ICD-10-PCS; principal; 2023-03-29 13:00)
PROC: 0HBV0ZZ Excision of Bilateral Breast, Open Approach (ICD-10-PCS; 2023-03-29 13:00)
DX: C50.812 Malignant neoplasm of overlapping sites of left female breast (principal); N60.11 Diffuse cystic mastopathy of right breast; N60.12 Diffuse cystic mastopathy of left breast; N60.22 Fibroadenosis of left breast; N60.31 Fibrosclerosis of right breast; N60.32 Fibrosclerosis of left breast; N60.81 Other benign mammary dysplasias of right breast; N60.82 Other benign mammary dysplasias of left breast; N64.89 Other specified disorders of breast
CPT/HCPCS: 36415; 76098-TC-FY; 78195-TC; 80048; 85027; 88305-TC; 88307-TC; 88341-TC; 88342-TC; 94760; A9541